=== PATIENT | male | born 1945 | race Asian ===

== ENCOUNTER 2017-02-01 11:00 | Inpatient (IN) | payer MEDICARE, OTHER ==
[~2017-02-01] VITALS: Ht 167.6 cm; Wt 65.8 kg
--- NOTE | ~2017-02-01 | CON ---
PATIENT'S NAME: IVETT [facility] AGE: 71 Y [address] ROOM: [place] [address] LOCATION: GPCU ADMIT DATE: 02/03/2017 Consultation DISCHARGE DATE: 02/04/2017 FAMILY PHYSICIAN: Brain Bingham MD ATTENDING PHYSICIAN: Yrn Devlin REFERRING PHYSICIAN: Keke Rausch MD REFERRING PHYSICIAN: Yrn Devlin MD REASON FOR CONSULTATION: ESRD and management of dialysis. HISTORY OF PRESENT ILLNESS: A 71-year-old male with history of hypertension and hypertensive nephropathy leading to ESRD, currently on in-center hemodialysis at [facility] in the [facility], getting dialyzed on Tuesday, Tuesday, and Tuesday schedule, who came to our hospital for left carotid endarterectomy. Nephrology consultation has been called for management of dialysis. The patient has been started on dialysis since 2016, possibly secondary to hypertensive nephrosclerosis, as mentioned above. Currently is on in-center hemodialysis via the right upper arm AV fistula. He has couple of buttonholes and he uses this buttonholes for the access. The patient was seen and examined today on dialysis, getting dialyzed on a 2K dialysis bath. Currently almost at the dry weight. We are not doing aggressive ultrafiltrate on him. Post carotid endarterectomy, the patient is neurologically intact. However, complaining of mild nausea and headache, otherwise, hemodynamically stable. No significant other complaints including chest pain, shortness of breath, orthopnea, PND, nausea, or vomiting. Makes very little urine at this time. PAST MEDICAL HISTORY: 1. Hypertension. 2. ESRD, on hemodialysis. PAST SURGICAL HISTORY: 1. Hemorrhoidectomy. 2. Laceration surgery. 3. Carotid endarterectomy done yesterday. 4. Accident or injuries: Nothing significant. MEDICATIONS: As per the chart. ALLERGIES: NO KNOWN DRUG ALLERGIES. FAMILY HISTORY: Maternal and paternal family illnesses are largely unknown. Denies any particular family disease including renal disease. 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 Denies any significant smoking or alcohol use. PATIENT'S NAME: IVETT [facility] AGE: 71 Y [address] ROOM: [place] [id number] LOCATION: GPCU ADMIT DATE: 02/03/2017 Consultation DISCHARGE DATE: 02/04/2017 FAMILY PHYSICIAN: Brain Bingham MD ATTENDING PHYSICIAN: Yrn Devlin REVIEW OF SYSTEMS: GENERAL: No fever. No chills or rigor. HEENT: Complaining of headache. No sore throat. No sinus congestion. CVS: No chest pain. No exertional shortness of breath. No leg swelling. RESPIRATORY: No shortness of breath. No cough. No wheezing. GENITOURINARY: No pain with urination. No increased frequency. No nocturia. GASTROINTESTINAL: No abdominal pain. No abdominal distention. No nausea or vomiting. NEUROLOGIC: No weakness. No seizures. SKIN: No rash. No itching. ALLERGIES: No seasonal allergy. No hayfever. ENDOCRINE: No heat intolerance. No cold intolerance. PSYCHIATRIC: No sadness. No crying spells. No history of panic attack. PHYSICAL EXAMINATION: VITAL SIGNS: Blood pressure 127/59, pulse 94, respiratory rate 18, saturation 98.9, and body weight 65.8. GENERAL: Not in apparent distress. HEAD: Moist mucous membranes. Bilateral PERRLA, EOMI. NECK: No JVD, thyromegaly or lymphadenopathy. CVS: S1 and S2 normal, regular rate and rhythm. No murmur, rub, gallop. CHEST: Bilateral air entry equal. No wheeze or rales. ABDOMEN: Soft, nontender, nondistended. Bowel sounds present. EXTREMITIES: No cyanosis, clubbing, jaundice. No dependent edema. MUSCULOSKELETAL: No limitation of range of motion. SKIN: No pallor, cyanosis, icterus. EDUCATION DIRECTOR: Alert and oriented x3. No gross findings. LABORATORY EVALUATION: WBC 7.5, hemoglobin 10.7, and platelets 177,000. Chemistry; serum sodium 137, potassium 5.0, chloride 102, bicarbonate 25, BUN 57, creatinine 7.9, glucose 160, calcium 8.4, total protein 8.7, albumin 3.5, total bilirubin 0.4, and anion gap 12.9. ASSESSMENT AND PLAN: 1. End-stage renal disease, on in-center hemodialysis since 2015. The patient is getting dialysis today as per his outpatient Tuesday, Tuesday, and Tuesday schedule. As mentioned above, the patient is currently at the dry weight so we are not pulling much about 0.5 to 1 L on overall in 4 hours on depending on the hemodynamics. Getting dialyzed on 2K bath, considering this and potassium to be 5.0. We are using the right upper extremity arteriovenous fistula with the buttonhole for the hemodialysis access. The patient has been seen and examined on dialysis, tolerating HD well except for mild headache. 2. Anemia of chronic disease. Currently on EPO 1000 units on each dialysis. Hemoglobin is in the acceptable range. So, we are not giving EPO while in the hospital setting. PATIENT'S NAME: GERRI [facility] AGE: 71 Y [address] ROOM: [place] [address] LOCATION: GPCU ADMIT DATE: 02/03/2017 Consultation DISCHARGE DATE: 02/04/2017 FAMILY PHYSICIAN: Brain Bingham MD ATTENDING PHYSICIAN: Yrn Devlin 3. Headaches. We will give Tylenol p.r.n. 4. Hypertension. Continue current antihypertensive regimen. Blood pressure is within adequately controlled. Volume status is also acceptable. 5. Nausea. Give Zofran p.r.n. 6. Carotid stenosis status post left carotid endarterectomy. Neurologically intact. Vascular Surgery is following. Further management as per the Vascular Surgery. Thank you for allowing me to participate in this patient's care. We will closely monitor the patient's progress along with you. ABHISEKH STEVE CANADA MD /modl /[id number] d: 02/04/170 t: 02/08/17 1129, CONSULTATION REPORT
--- NOTE | ~2017-02-01 | OR ---
PATIENT'S NAME: IVETT [facility] AGE: 71 Y [address] ROOM: [place] [address] LOCATION: GPCU ADMIT DATE: 02/03/2017 OR/Procedure Report DISCHARGE DATE: FAMILY PHYSICIAN: Brain Bingham MD ATTENDING PHYSICIAN: YRN FOWLER SURGEON: Yrn Fowler MD RADIO TOWER TECHNICIAN: DATE OF PROCEDURE: 02/03/2017 PREOPERATIVE DIAGNOSIS: Recurrent left internal carotid artery stenosis. POSTOPERATIVE DIAGNOSIS: Recurrent left internal carotid artery stenosis. PROCEDURE PERFORMED: Left carotid redo endarterectomy. SUPERINTENDENT POLICE: [place]. ANESTHESIA: General. ESTIMATED BLOOD LOSS: 100 mL. OPERATIVE FINDINGS: 1. 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 2. Neurologically intact at the end of the case. 3. Severe scar tissue within the wound. DESCRIPTION OF PROCEDURE: The patient was brought to the operating room, placed supine on the operating table, placed under general anesthesia, and prepped and draped in a sterile manner. Preoperative time-out was performed. The patient received preoperative antibiotics. We made an incision through his previous left endarterectomy incision. We then were met rapidly with significant dense scar tissue. We, as carefully as we could, dissected out the common, external, and the internal carotid arteries. It was difficult to see in the scar tissue any nerve structures. We did think that we did identify the hypoglossal nerve, but we were not entirely sure. We then gave 5000 units of heparin. We clamped proximally and distally on all arteries. We performed a blood pressure, which showed adequate pressure. We then made our arteriotomy on the common, and extended onto the internal with Hammonds scissors. What we found was significantly dense neointimal hyperplasia. We removed this hyperplasia as much as we could, and we sewed a bovine pericardial patch using two running 6-0 [place] sutures. We did have some difficulty in the distal sutures and with a small tear in the internal, which had to be repaired with interrupted 7-0 Prolenes. PATIENT'S NAME: IVETT [facility] AGE: 71 Y [address] ROOM: [place] [address] LOCATION: GPCU ADMIT DATE: 02/03/2017 OR/Procedure Report DISCHARGE DATE: FAMILY PHYSICIAN: Brain Bingham MD ATTENDING PHYSICIAN: YRN FOWLER We removed the clamps. There was excellent flow in all three arteries. We used a total of 5000 units of heparin, which we reversed with protamine. WOUND CLOSURE: Deep layers were closed with 2-0 and 3-0 Vicryls. The skin was closed with running 4-0 Monocryl. POSTOPERATIVE CONDITION: The patient awoke in the operating room neurologically intact. YRN FOWLER MD FKM/modl /[id number] d: 02/03/172200 t: 02/06/17 1629, OPERATIVE SUMMARY
[~2017-02-01 11:00] MED LIST: ASPIRIN (CHILDR81 MG PO; CARDIZEM SR120 MG PO; DILTIAZEM ER120 M2 PO; LASIX20 MG PO; LIPITOR40 MG PO; LIPITOR80 MG PO; MULTIVITAMINS1 EAC1 PO; NORCO 5-325 MG1 TAB PO; PAXIL10 MG PO; PLAVIX75 MG PO; SODIUM BICARBO650 MG PO; THERA-VITE W/ B1 TAB PO; VENOFER100 MG/5 M IVP; VITAMIN D1000 UNI1 PO; VITAMIN D1000 UNIT PO; ZYLOPRIM100 MG PO
[2017-02-01] MEDS ORDERED: FAMOTIDINE20 MG PO (11:15)
[2017-02-01] MEDS ORDERED: NITROSTAT0.4 MG SL (11:15)
[2017-02-03 09:28] LABS: BASOPHIL % 0.5 %; EOSINOPHIL # 0.4 K/uL (0.0-0.5); EOSINOPHIL % 6.8 %; HEMATOCRIT 36.8 % (37.0-53.0); HEMOGLOBIN 12.1 g/dL (11.0-16.0); IMMATURE GRANULOCYTE # 0.1 K/uL (0.0-0.3); IMMATURE GRANULOCYTE % 0.9 %; LYMPHOCYTE # 1.2 K/uL (0.8-4.0); LYMPHOCYTE % 21.5 %; MCH 26.7 pg (27.0-34.0); MCHC 32.9 gm/dL (32.0-36.5); MCV 81.2 fl (83.0-98.0); MONOCYTE # 0.9 K/uL (0.0-1.0); MONOCYTE % 15.2 %; MPV 10.1 fl (9.4-12.4); NEUTROPHIL # (ANC) 3.2 K/uL (1.4-9.0); NEUTROPHIL % 55.1 %; NRBC % 0 /100WBC (0-0.00); PLATELET COUNT 197 K/uL (150-450); RBC 4.53 M/uL (3.50-5.50); RDW-CV 14.6 % (11.9-14.6); WBC 5.7 K/uL (4.0-11.0)
[2017-02-03 09:43] LABS: ALBUMIN 3.5 gm/dL (3.5-5.0); ANION GAP 12.9 (10.0-19.0); CALCIUM 8.9 mg/dL (8.5-10.5); POTASSIUM 4.9 mMol/L (3.7-5.1); TOTAL BILIRUBIN 0.4 mg/dL (0.0-1.5); TOTAL PROTEIN 8.7 g/dL (6.0-8.4)
[2017-02-03 09:44] LABS: CREATININE 6.7 mg/dL (0.6-1.3)
[2017-02-04 05:16] LABS: CALCIUM 8.4 mg/dL (8.5-10.5); CREATININE 7.9 mg/dL (0.6-1.3)
[2017-02-04 05:19] LABS: BASOPHIL % 0.4 %; EOSINOPHIL # 0.2 K/uL (0.0-0.5); EOSINOPHIL % 2.8 %; HEMATOCRIT 32.2 % (37.0-53.0); HEMOGLOBIN 10.7 g/dL (11.0-16.0); IMMATURE GRANULOCYTE % 0.5 %; LYMPHOCYTE % 13.3 %; MCH 26.8 pg (27.0-34.0); MCHC 33.2 gm/dL (32.0-36.5); MCV 80.5 fl (83.0-98.0); MONOCYTE # 0.8 K/uL (0.0-1.0); MONOCYTE % 10.7 %; MPV 10.2 fl (9.4-12.4); NEUTROPHIL # (ANC) 5.4 K/uL (1.4-9.0); NEUTROPHIL % 72.3 %; NRBC % 0 /100WBC (0-0.00); PLATELET COUNT 177 K/uL (150-450); RDW-CV 14.8 % (11.9-14.6); WBC 7.5 K/uL (4.0-11.0)
[2017-02-04] MEDS ORDERED: NORCO 5-325 TA1 EACH PO (16:26)
== END 2017-02-04 17:25 | disposition disaster alternative care site (69) | DRG 981 ==
LOC: GPCU 02-03 08:17
PROVIDERS: ADMIT Surgery Vascular Surgery
PROC: 02C Heart and Great Vessels, Extirpation (ICD-10-PCS; principal; 2017-02-03)
PROC: 5A1D00Z (ICD-10-PCS; 2017-02-04)
DX: I65.22 Occlusion and stenosis of left carotid artery (principal); N18.6 End stage renal disease; I12.0 Hypertensive chronic kidney disease with stage 5 chronic kidney disease or end stage renal disease; E11.22 Type 2 diabetes mellitus with diabetic chronic kidney disease; E78.5 Hyperlipidemia, unspecified; F32.9 Major depressive disorder, single episode, unspecified; F41.9 Anxiety disorder, unspecified; Z86.73 Personal history of transient ischemic attack (TIA), and cerebral infarction without residual deficits; F17.200 Nicotine dependence, unspecified, uncomplicated; Z79.82 Long term (current) use of aspirin; Z99.2 Dependence on renal dialysis; D63.8 Anemia in other chronic diseases classified elsewhere; R51 Headache; R11.0 Nausea
CPT/HCPCS: J0690; J1644; J2001; J2270; J2405; J2720; J7030